=== PATIENT | male | born 1965 | race Caucasian/White ===

== ENCOUNTER 2024-10-31 14:12 | Outpatient (CLI) | payer BC, SELFPAY ==
--- NOTE | ~2024-10-31 | MR_ITS ---
EXAMINATION: MR lumbar spine wo con DATE: 10/31/2024 14:41 INDICATION: Lumbar radiculopathy TECHNIQUE: Magnetic resonance imaging (MRI) of the lumbar spine was performed without intravenous con trast. Sequences included sagittal T2-weighted FSE, sagittal T2-weighted FS FSE, sagittal T1-weighted FSE, and axial T2-weighted FSE. COMPARISON: None FINDINGS: 13 degree lumbar levocurvature. Sagittal alignment is normal. Vertebral body heights are normal. T1 a nd T2 hyperintense hemangioma at T12 and S1.. Marrow signal is otherwise normal. Moderate disc height loss at L3-L4 and L4-L5. Mild disc height loss at L1-L2, L2-L3 and L5-S1. The conus medullaris termi nates at L1-L2. There is normal signal in the caudal spinal cord. Paravertebral soft tissues are unre markable. The following disc levels are specifically discussed: T12-L1: Disc is bulging. There is severe bilateral facet joint osteoarthritis. There is mild bilatera l neural foraminal stenosis. There is mild central canal stenosis. L1-L2: Disc is bulging. There is mild bilateral facet joint osteoarthritis. There is mild left and mi ld to moderate right neural foraminal stenosis. There is mild central canal stenosis. L2-L3: Disc is bulging. There is mild left and moderate right facet joint osteoarthritis. There is mi ld left and mild to moderate right neural foraminal stenosis. There is mild to moderate central canal stenosis. L3-L4: Disc is bulging with annular fissure. There is hypertrophy of the ligamentum flavum. There is moderate bilateral facet joint osteoarthritis. There is moderate bilateral neural foraminal stenosis . There is severe central canal stenosis with no discernible CSF signal intensity centrally clustered nerve roots. L4-L5: Disc is bulging. There is moderate right and moderate to severe left facet joint osteoarthriti s. There is moderate to severe bilateral neural foraminal stenosis. There is mild central canal steno sis. L5-S1: Disc is bulging. There is moderate right and severe left facet joint osteoarthritis. There is moderate right and severe left neural foraminal stenosis. There is mild central canal stenosis. IMPRESSION: 1. Moderate lumbar spondylosis most notable for severe central canal stenosis at L3-L4, severe neural foraminal stenosis on the right at L5-S1 and moderate to severe neural foraminal stenosis bilaterall y at L4-L5. Reviewed, dictated and finalized at location A. IMPRESSION: 1. Moderate lumbar spondylosis most notable for severe central canal stenosis a t L3-L4, severe neural foraminal stenosis on the right at L5-S1 and moderate to severe neural foraminal stenosis bilaterally at L4-L5.
== END 2024-10-31 14:13 | disposition home or self-care (01) ==
LOC: MICIMG 14:15
PROVIDERS: PCP Physician Assistant; Visit Provider Physician Assistant
DX: M47.26 Other spondylosis with radiculopathy, lumbar region (principal); M48.061 Spinal stenosis, lumbar region without neurogenic claudication
CPT/HCPCS: 72148

== ENCOUNTER 2025-02-26 13:40 | Outpatient (CLI) | payer BC, SELFPAY ==
--- NOTE | ~2025-02-26 | XR_ITS ---
XR lumbar spine min 4V, XR scoliosis survey 02/26/2025 14:33 Indication: Spinal stenosis Procedure: 5 views lumbar spine 6 views from scoliosis Comparison: No prior studies for comparison. Findings: There is severe multilevel thoracic and lumbar spondylosis. No acute fracture or traumatic malalignment. There is a left iliac stent. There is S-shaped scoliosis of the thoracolumbar spine marvin suring 15 degrees in the lower thoracic spine centered at T11 and 23 degrees and the lumbar spine yu tered at L3. Impression: 1: Severe thoracic and lumbar spondylosis with a shaped scoliosis. Reviewed, dictated and finalized at location A. Impression: 1: Severe thoracic and lumbar spondylosis with a shaped scoliosis. Impression: 1: Severe thoracic and lumbar spondylosis with a shaped scoliosis.
== END 2025-02-26 13:41 | disposition home or self-care (01) ==
PROVIDERS: PCP Internal Medicine; Visit Provider Neurological Surgery
DX: M48.061 Spinal stenosis, lumbar region without neurogenic claudication (principal)
CPT/HCPCS: 72082; 72110